=== PATIENT | female | born 1980 | race Caucasian/White ===

== ENCOUNTER 2018-09-05 13:56 | Emergency (ER) | payer OTHER, SELFPAY ==
[2018-09-05] MEDS ORDERED: LIDOCAINE 1% MPF 5 ML VIAL ONE ×2 (15:10→15:13)
--- NOTE | 2018-09-05 15:21 | ER ---
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 Transition of care: patient was not received from another setting of care. Complicating Factors: There are no complicating factors for this patient. Onset of symptoms was September 05, 2018. Risk Assessment: Do you want to hurt yourself or someone else? Patient reports no desire to harm self or others. Initial Sepsis Screen: Does the patient meet any 2 criteria? No. Patient's initial sepsis screen is negative. Does the patient have a suspected source of infection? No. Patient's initial sepsis screen is negative. Care prior to arrival: None. 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 Screenin:00 Abuse screen: Denies threats or abuse. Nutritional screening: No deficits noted. em Tuberculosis screening: No symptoms or risk factors identified. Fall Risk None identified. Assessment: 15:00 General: Appears in no apparent distress. comfortable, Behavior is calm, cooperative. em Pain: Complains of pain in palm of left hand Pain currently is 2 out of 10 on a pain scale. Neuro: Level of Consciousness is awake, alert, obeys commands, Oriented to person, place, time, situation. Cardiovascular: Capillary refill < 3 seconds Patient's skin is warm and dry. Respiratory: Airway is patent Respiratory effort is even, unlabored, Respiratory pattern is regular, symmetrical. Derm: Skin is intact, is healthy with good turgor, Skin is pink, warm \\T\\ dry. Musculoskeletal: Capillary refill < 3 seconds, Range of motion: intact in all extremities. Injury Description: Laceration sustained to palm of left hand is clean, 0.5 to 2.5 cm long, was sustained 30-60 minutes ago. is bleeding a small amount. Vital Signs: 14:33 BP 134 / 95; Pulse 96; Resp 18; Temp 98.3; Pulse Ox 98% on R/A; Weight 88.45 kg; Height ph 5 ft. 3 in. (160.02 cm); Pain 2/10; 14:33 Body Mass Index 34.54 (88.45 kg, 160.02 cm) ph ED Course: 14:00 Patient arrived in ED. tw3 14:33 Triage completed. ph 14:35 Arm band placed on. ph 14:38 Tim Post LVN is Primary Nurse. em 14:40 Joel Farias PA is PHCP. [facility] 14:[address] MD is Attending Physician. [facility] 15:00 Patient has correct armband on for positive identification. Bed in low position. Call em light in reach. Adult w/ patient. 15:30 Assist provider with laceration repair on palm of left hand that was 2.5 cm. or less em using sutures. Set up tray. Performed by Joel SANTIAGO Dressed with Adaptic, Kerlix, Patient tolerated well. 15:51 Patient did not have IV access during this emergency room visit. 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 Exp: em 06/17/2020. Lot #: [id number]. } Route: IM; Site: left deltoid; 15:47 Follow up: Response: No adverse reaction em Outcome: 15:21 Discharge ordered by . [facility] 15:52 Discharged to home ambulatory, with family. em 15:52 Condition: good 15:52 Discharge instructions given to patient, Instructed on discharge instructions, follow up and referral plans. Demonstrated understanding of instructions, follow-up care. 15:53 Patient left the ED. em Signatures: Joel Farias PA PA jmm Munoz, Edgar, BUSINESS CONTINUITY MANAGEMENT DIRECTOR BUSINESS CONTINUITY MANAGEMENT DIRECTOR em Arti Powell, TEZ RN rosa Alexandre, Taylor tw3
--- NOTE | 2018-09-05 15:21 | EDPHYS ---
Physician Documentation [facility] Name: Cydney Clark Age: 37 yrs Sex: Female : 1980 Arrival Date: 09/05/2018 Time: 14:00 Bed 17 Private MD: ED Physician John Street HPI: 09/05 14:51 This 37 yrs old Female presents to ER via Ambulatory with complaints of jmm Laceration To Hand. 14:51 The patient has a laceration related to: occurred at home. Onset: The symptoms/episode jmm began/occurred acutely. Associated signs and symptoms: Pertinent negatives: heavy bleeding, loss of consciousness, numbness distal to injury, suspected foreign body. This is a 37 year old female with no chronic medical conditions that presents to the ED with complaints of left palm laceration. Patient states a glass wiper blender shattered with a large jagged piece landing on her palm. Patient does not suspect foreign body. Patient denies other injury. . 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 ROS: 14:51 Constitutional: Negative for fever, chills, and weight loss, Cardiovascular: Negative jmm for chest pain, palpitations, and edema, Respiratory: Negative for shortness of breath, cough, wheezing, and pleuritic chest pain. 14:51 MS/extremity: Positive for injury or acute deformity, laceration. 14:51 Skin: Positive for laceration(s). 14:51 All other systems are negative. Exam: 14:51 Constitutional: This is a well developed, well nourished patient who is awake, alert, jmm and in no acute distress. Head/Face: atraumatic. Eyes: EOMI, no conjunctival erythema appreciated ENT: Moist Mucus Membranes Neck: Trachea midline, Supple Chest/axilla: Normal chest wall appearance and motion. Cardiovascular: Regular rate and rhythm. No edema appreciated Respiratory: Normal respirations, no respiratory distress appreciated Abdomen/GI: Non distended, soft Back: Normal ROM 14:51 Musculoskeletal/extremity: FROM appreciated to the left hand, full strength against resistance, < 2 sec dist cap refill, NVI. 14:51 Skin: 2 cm laceration noted to the left palm, mild bleeding noted. 14:51 Neuro: Orientation: is normal, Mentation: is normal, Memory: is normal. 14:51 Psych: Behavior/mood is pleasant, cooperative. Vital Signs: 14:33 BP 134 / 95; Pulse 96; Resp 18; Temp 98.3; Pulse Ox 98% on R/A; Weight 88.45 kg; Height ph 5 ft. 3 in. (160.02 cm); Pain 2/10; 14:33 Body Mass Index 34.54 (88.45 kg, 160.02 cm) ph Laceration: 14:51 Wound Repair of 2cm ( 0.8in ) subcutaneous laceration to left hand. Distal jmm neuro/vascular/tendon intact. Anesthesia: Local anesthetic administered with 5 mls of 1% lidocaine. Wound prep: Moderate cleansing with betadine by me. Skin closed with 4 5-0 Prolene using simple sutures and sterile technique. Dressed with non-adherent dressing. Patient tolerated well. MDM: 14:51 Patient medically screened. charu 15:20 Data reviewed: vital signs, nurses notes. Counseling: I had a detailed discussion with charu the patient and/or guardian regarding: the historical points, exam findings, and any diagnostic results supporting the discharge/admit diagnosis, the need for outpatient follow up, to return to the emergency department if symptoms worsen or persist or if there are any questions or concerns that arise at home. 15:20 ED course: Patient given wound infection return precautions. Patient understood and charu agrees with the plan of care. . Administered Medications: 15:12 Drug: Lidocaine (1 %) 5 mg {Note: administered by PA. 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 Exp: em 06/17/2020. Lot #: [id number]. } Route: IM; Site: left deltoid; 15:47 Follow up: Response: No adverse reaction em Disposition: 09/05/18 15:21 Discharged to Home. Impression: Hand Laceration. - Condition is Stable. - Discharge Instructions: Laceration Care, Adult. - Medication Reconciliation Form, Thank You Letter, Antibiotic Education, Prescription Opioid Use form. - Follow up: Private Physician; When: 2 - 3 days; Reason: Recheck today's complaints, Continuance of care, Re-evaluation by your physician. Addendum: 09/09/2018 20:48 Co-signature as Attending Physician, John Street MD. g s Signatures: Joel Farias PA PA jmm Munoz, Edgar, CRITICAL CARE UNIT MANAGER CRITICAL CARE UNIT MANAGER Arti Rausch, RN RN John Street MD MD Corrections: (The following items were deleted from the chart) 09/05 15:53 15:21 09/05/2018 15:21 Discharged to Home. Impression: Hand Laceration. Condition is em Stable. Forms are Medication Reconciliation Form, Thank You Letter, Antibiotic Education, Prescription Opioid Use. Follow up: Private Physician; When: 2 - 3 days; Reason: Recheck today's complaints, Continuance of care, Re-evaluation by your physician. charu
[2018-09-05] MEDS ORDERED: TETANUS & DIPHTHERIA TOX,ADULT 0.5 ML VIAL ONE (15:36)
[2018-09-05 16:33] VITALS: BP 134/95; TEMP 98.3; O2SAT 98
== END 2018-09-05 15:53 | disposition home or self-care (01) ==
LOC: ER 13:56
PROC: 0JQK0ZZ Repair Left Hand Subcutaneous Tissue and Fascia, Open Approach (ICD-10-PCS; principal; 2018-09-05)
DX: S61.412A Laceration without foreign body of left hand, initial encounter (principal); W25.XXXA Contact with sharp glass, initial encounter; Y93.89 Activity, other specified; Y92.000 Kitchen of unspecified non-institutional (private) residence as the place of occurrence of the external cause; Z88.5 Allergy status to narcotic agent; Z88.7 Allergy status to serum and vaccine
CPT/HCPCS: 90471; 90714; 99283